=== PATIENT | female | born 1990 | race African-American/Black ===

== ENCOUNTER 2023-09-09 17:38 | Emergency (ER) | payer MEDICAID ==
[~2023-09-09] VITALS: Ht 165.1 cm; Wt 101.6 kg
[2023-09-09 17:49] VITALS: O2SAT 100
[2023-09-09 18:26] LABS: BASOPHILS % 0.1 % (0.0-2.0); DIFFERENTIAL COMMENT 0; EOSINOPHILS % 0.3 % (0.0-5.0); HEMATOCRIT. 28.7 % (36.0-48.0); HEMOGLOBIN. 8.7 g/dL (12.0-16.0); LYMPHOCYTES % 27.7 % (20.0-50.0); MEAN CORPUSCULAR HEMOGLOBIN 21.4 pg (28.0-32.0); MEAN CORPUSCULAR HGB CONC 30.3 g/dL (31.0-37.0); MEAN CORPUSCULAR VOLUME 70.6 fL (81.0-99.0); MEAN PLATELET VOLUME 7.9 fl (7.4-10.4); MONOCYTES % 7.5 % (2.0-8.0); NEUTROPHILS % 64.4 % (40.0-76.0); PLATELET 383 x1000/uL (130-400); RED BLOOD CELL COUNT 4.07 mill/uL (4.2-5.4); WHITE BLOOD COUNT 8.3 x1000/uL (4.5-11.0)
[2023-09-09 18:27] LABS: CLARITY URINE TURBID (CLEAR); COLOR URINE RED (YELLOW); GLUCOSE URINE NEGATIVE (NEGATIVE); KETONES URINE NEGATIVE (NEGATIVE); LEUKOCYTE ESTERASE URINE 3+ (NEGATIVE); NITRITE URINE NEGATIVE (NEGATIVE); OCCULT BLOOD URINE 3+ (NEGATIVE); PH URINE 7.5 (4.5-8.0); PROTEIN URINE 1+ (NEGATIVE); SPECIFIC GRAVITY URINE 1.026 (1.005-1.030)
[2023-09-09 18:33] LABS: CHLORIDE 103 mEq/L (98-107); POTASSIUM 3.4 mEq/L (3.5-5.1); SODIUM 137 mEq/L (136-145)
[2023-09-09 18:34] LABS: CALCIUM 9.3 mg/dL (8.7-10.4); CARBON DIOXIDE 27 mEq/L (21-32)
[2023-09-09 18:39] LABS: CREATININE 0.7 mg/dL (0.6-1.0); GLUCOSE 88 mg/dL (70-105); UREA NITROGEN BLOOD 10 mg/dL (9-23)
[2023-09-09 18:41] LABS: ALANINE AMINOTRANSFERASE < 7 IU/L (10-49); ALBUMIN 4.4 g/dL (3.2-4.8); ASPARTATE AMINOTRANSFERASE 14 IU/L (<34); BILIRUBIN TOTAL 0.3 mg/dL (0.1-1.0); PROTEIN TOTAL 7.7 g/dL (6.0-8.3)
[2023-09-09 18:50] LABS: BILIRUBIN DIRECT < 0.1 mg/dL (<=3.0)
[2023-09-09 18:56] LABS: BACTERIA URINE 2+; RBC URINE TNTC /hpf (0-2); SQUAMOUS EPITHELIAL CELL URINE 1+ /lpf (RARE/1+)
[2023-09-09 18:56] LABS: B-HCG QUANTITATIVE 18094 mIU/mL (<3)
[2023-09-09 18:57] LABS: WBC URINE 15-25 /hpf (0-2)
[2023-09-09 18:58] LABS: TRICHOMONAS URINE 2+
[2023-09-09] MEDS ORDERED: CEPH500C2 MT (20:23)
[2023-09-09 21:05] VITALS: BP 146/88; PULSE 90; RESP 16; TEMP 98.7
== END 2023-09-09 21:06 | disposition home or self-care (01) ==
LOC: ER 17:38
DX: O46.91 Antepartum hemorrhage, unspecified, first trimester (principal); Z3A.01 Less than 8 weeks gestation of pregnancy
CPT/HCPCS: 36415; 76801; 80048; 80076; 81003; 81025; 84702; 85025; 86850; 86900; 99284